=== PATIENT | male | born 1960 | race Caucasian/White ===

== ENCOUNTER → 2018-05-29 | Outpatient (CLI) | payer OTHER ==
[~2018-05-29] MED LIST: GADOBENATE 529MG/1ML 15ML VIAL IVP ONE
--- NOTE | 2018-05-29 13:48 | RADIOLOGY IMAGING REPORT ---
FACILITY: [facility] PATIENT NAME: Ross Perez : 1960 MR: [id number] V: [id number] EXAM DATE: ORDERING PHYSICIAN: CULLEN LAU TECHNOLOGIST: Location: [facility] Patient: Ross Perez : 1960 Visit/Account:[id number] Date of Sevice: 05/29/2018 EXAMINATION: C SPINE W W/O CONTRAST INDICATION: Muscle weakness, paresthesias COMPARISON: None available TECHNIQUE: Multiplane MR imaging was performed through the cervical spine without and with contrast. 15 ml gadobenate injected. FINDINGS: Vertebral body height: Normal Cord signal: Normal Marrow signal: Normal Prevertebral and paraspinal soft tissues: Normal Enhancement: No pathologic enhancement. C2-3: Normal C3-4: Normal C4-5: Small right posterior disc osteophyte complex contacts the anterior cord with resultant slight cord deformity. Mild right-sided canal narrowing. No apparent foraminal narrowing. C5-6: Small right posterior disc osteophyte complex abuts the anterior cord with slight resultant cor d deformity. Mild to moderate right-sided canal narrowing. Foramen not well characterized secondary to artifact on axial acquisitions. C6-7: Potential mild to moderate right foraminal narrowing not well characterized on axial images, ot herwise normal. C7-T1: Normal IMPRESSION: 1. No acute finding. 2. Small right posterior C4-5 disc osteophyte complex contacts the cord with resultant slight cord d eformity and mild right-sided canal narrowing. 3. Small right posterior C5-6 disc osteophyte complex contacts the cord with resultant slight cord d eformity and mild to moderate right sided canal narrowing. 4. Suboptimal visualization of the C5-6 and C6-7 foramen secondary to artifact. 5. Potential mild to moderate right C6-7 foraminal narrowing not well characterized secondary to art ifact. Report Dictated By: Donnie Frye MD at 05/29/2018 1:38 PM Report E-Signed By: Donnie Frye MD at 05/29/2018 1:45 PM WSN:[id number]
== END ==
LOC: MRI 08:51
PROVIDERS: ATTEND Family Medicine
DX: M48.02 Spinal stenosis, cervical region (principal)
CPT/HCPCS: 72156; A9577

== ENCOUNTER → 2018-06-16 | Outpatient (CLI) | payer OTHER ==
--- NOTE | 2018-06-16 16:13 | RADIOLOGY IMAGING REPORT ---
FACILITY: [facility] [place] PATIENT NAME: Ross Perez : 1960 MR: [id number] V: [id number] EXAM DATE: ORDERING PHYSICIAN: GAYLA LILLY TECHNOLOGIST: Location: [facility] [place] Patient: Ross Perez : 1960 Visit/Account:[id number] Date of Sevice: 06/16/2018 DEXA Scan Clinical history: Osteopenia. Comparison: None available. LUMBAR SPINE: The bone mineral density (BMD) measured from L1-L4 correlates with a Z-score 0.5 and a T-score of 0.4 which is Normal as defined by the World Health Organization. The corresponding risk of fracture in the lumbar spine is Not increased compared with a young adult reference population. HIP: Bone mineral density (BMD) measured in the Left femoral neck region correlates with a Z-score -0.8 an d a T-score of -1.5 which is osteopenia as defined by the World Health Organization. The correspondi ng risk of fracture in the hip is increased compared with a young adult reference population. Bone mineral density (BMD) measured in the Femoral Neck region measures 0.875 g/cm2. Impression: 1. Lumbar spine: Normal. 2. Left femoral neck region: Osteopenia. 3. Femoral Neck: Bone Mineral Density is 0.875 g/cm2 The next DEXA scan of this patient should include the following sites: L1-L4 and the left hip. FRAX? WHO Fracture Risk Assessment Tool link: <http://www.shef.ac.uk/FRAX/tool.jsp?locationValue=9> PLEASE NOTE: 1) The World Health Organization defines low BMD as follows: T-score Normal > -1 Osteopenia < -1 and > -2.5 Osteoporosis < -2.5 without fractures Established osteoporosis < -2.5 with fractures 2) In general, you may wish to consider: Diagnosis Treatment Follow-up DEXA Normal BMD Prevention 2-3 years Osteopenia Prevention/therapy 1-2 years Osteoporosis Therapy Yearly 3) Fracture risk estimated from the T-score is more accurate for vertebral fractures (often spontane ous) than for hip fractures. Report Dictated By: Gayla Chinchilla at 06/16/2018 4:08 PM Report E-Signed By: Gayla Chinchilla at 06/16/2018 4:10 PM WSN:[id number]
== END ==
LOC: RAD 06:49
PROVIDERS: ATTEND Internal Medicine Rheumatology
DX: Z13.820 Encounter for screening for osteoporosis (principal); Z79.899 Other long term (current) drug therapy; M85.80 Other specified disorders of bone density and structure, unspecified site
CPT/HCPCS: 77080